=== PATIENT | female | born 1950 | race Caucasian/White ===

== ENCOUNTER → 2022-01-11 14:04 | Outpatient (CLI) | payer MEDICARE, SELFPAY ==
[2022-01-11 15:08] LABS: Add Manual Diff / Slide Review NO; Basophils Absolute Auto 0 /uL (0-100); Basophils Percent Auto 0.4 % (0-2); Eosinophils Absolute Auto 200 /uL (0-450); Eosinophils Percent Auto 2.1 % (2-4); Hematocrit 43.2 % (36-46); Hemoglobin 14.9 g/dL (12.0-16.0); Lymphocytes Absolute Auto 3300 /uL (1100-4500); Lymphocytes Percent Auto 38.3 % (25-40); Mean Corpuscular HGB Conc 34.5 % (30-36); Mean Corpuscular Volume 98.7 fL (80-100); Monocytes Absolute Auto 600 /uL (0-900); Monocytes Percent Auto 7.4 % (3-14); Neutrophils Absolute Auto 4400 /uL (1500-7000); Neutrophils Percent Auto 51.8 % (50-75); Platelet Count 164 X10^3/uL (150-400); Red Blood Cell Count 4.37 X10^6/uL (4.0-5.2); White Blood Cell Count 8.6 X10^3/uL (4.5-11.0)
[2022-01-11 16:40] LABS: BUN Creatinine Ratio 25.5 (6-22); Blood Urea Nitrogen 28 mg/dL (7-17); Calcium 9.2 mg/dL (8.4-10.2); Carbon Dioxide 29 mmol/L (22-32); Chloride 100 mmol/L (98-107); Estimated Glomerular Filt Rate 48.8 mL/min (>60); Glucose 101 mg/dL (80-110); HEMOLYSIS < 15 (0-50); Potassium 3.8 mmol/L (3.4-5.1); Sodium 138 mmol/L (137-145)
== END ==
PROVIDERS: PCP Nurse Practitioner; Referring Provider Orthopaedic Surgery Orthopaedic Surgery of the Spine; Visit Provider Orthopaedic Surgery Orthopaedic Surgery of the Spine
DX: Z01.818 Encounter for other preprocedural examination (principal); Z01.812 Encounter for preprocedural laboratory examination
CPT/HCPCS: 36415; 80048; 85025; 93005; 93010

== ENCOUNTER → 2022-01-29 11:14 | Outpatient (CLI) | payer MEDICARE, SELFPAY ==
[2022-01-29 13:23] LABS: COVID19 -Nasal RAPID Negative (Negative)
== END ==
PROVIDERS: PCP Nurse Practitioner; Visit Provider Family Medicine Sleep Medicine
DX: Z20.822 Contact with and (suspected) exposure to COVID-19 (principal)
CPT/HCPCS: 87635; C9803

== ENCOUNTER → 2022-02-15 13:11 | Outpatient (CLI) | payer MEDICARE, SELFPAY ==
[2022-02-15 16:29] LABS: COVID19 -Nasal RAPID Negative (Negative)
== END ==
PROVIDERS: PCP Nurse Practitioner; Visit Provider Family Medicine Sleep Medicine
DX: Z20.822 Contact with and (suspected) exposure to COVID-19 (principal)
CPT/HCPCS: 87635; C9803

== ENCOUNTER 2022-02-17 06:10 | Inpatient (IN) | payer MEDICARE, SELFPAY ==
[2022-02-08 10:27] VITALS: BMI 28.9
[2022-02-17] VITALS (17 sets, daily range): BP systolic 106–166; BP diastolic 50–79; PULSE 61–88; RESP 10–19; TEMP 35.8–36.6; O2SAT 91–100; BMI 28.9; BMI 31.4
--- NOTE | 2022-02-17 07:43 | PM.PREOP ---
Pre-operative Note COVID-19 COVID-19 status: Negative Result date/Date tested (Pos, Neg/Pending): 02/16/22 Criteria for continued procedure: Expected advancement of disease process, Possibility delay results in more complex future surgery or treatment, Increased loss of function, Continuing or worsening of significant or severe pain, Deterioration of the patient's condition or overall health and Delay expected to result in less-positive ultimate med/surg outcome Interval Note History & Physical reviewed/Exam performed by Physician: Yes Changes to H&P: No
[2022-02-17] MEDS: LACTATED RINGERS 1,000 ML 42 ML IV ×2 (07:56→09:25)
[2022-02-17] MEDS: CEFAZOLIN 2 GM/20 ML SYRINGE IV ×3 (08:28→23:19)
--- NOTE | 2022-02-17 08:53 | SUR.OPER ---
Supine, head on gel donut. Arms padded with gel pads, tucked at sides, towel roll under shoulders. Safety belt at thigh. Legs uncrossed.
[2022-02-17] MEDS: BUPIVACAINE 0.25% (PF) 30 ML, EPINEPHrine 0.15 MG INJ (09:02)
--- NOTE | 2022-02-17 11:07 | DI.RAD.S_ITS ---
PROCEDURE: XR CERVICAL SPINE 2V OR 3V INDICATIONS: C4-5-6-7 ACDF TECHNIQUE: Multiple intraoperative fluoroscopic view(s) of the cervical spine were acquired. COMPARISON: None. FINDINGS: Bones: Fluoroscopic intraoperative views demonstrate anterior fusion and discectomy within the lower cervical spine. IMPRESSION: Intraoperative fluoroscopic views of anterior fusion and discectomy of the lower cervical spine. Dictated by: Iva Peralta M.D. on 02/17/2022 at 11:26 Approved by: Iva Peralta M.D. on 02/17/2022 at 11:26
--- NOTE | 2022-02-17 11:09 | P.OP_ITS ---
Operative Date/Time/Diagnoses Date of procedure: 02/17/22 Time of procedure: 08:15 Pre-op diagnosis: 1. C4-5, C5-6, C6-7 spinal stenosis 2. C4-5, C5-6, C6-7 spondylosis with radiculopathy Post-op diagnosis: same Procedure & Clinicians Procedure: 1. C4-5 C5-6 C6-7 anterior cervical diskectomy and fusion 2. C4-5 C5-6 C6-7 anterior interbody cage placement 3. C4-5 C5-6 C6-7 anterior instrumentation with plate and screw placement in C4-C5-C6 and C7 vertebrae 4. Utilization of microsurgical technique and operating microscope Same procedure as scheduled: Yes Indications: Patient has been having chronic neck pain and worsening cervical radiculopathy. Patient failed multiple conservative management with worsening pain weakness and numbness in her upper extremity. Patient has been having difficulty performing activity of daily living. After discussing risks benefits of treatment options, patient elected proceed with surgery. Surgeon: Serjio Pena Supervisor Special Education: Susy Blas Click Yes if Unassisted: No Anesthesia Type: General Operative Notes Closure Type: primary Specimen(s): none sent Prosthetic devices, grafts, tissues, transplants, or devices: Globus Extend Plate, Titanium cages Applied: catheter Estimated Blood Loss (mL): 5 Blood products transfused: none Procedure in detail: Patient was seen in the preoperative area. Risks and benefits of the surgery was discussed with the patient. Operative consent was obtained and placed in the chart. Patient was then taken to the operative room. Prophylactic antibiotic was given less than 0.5 hr prior to skin incision. General anesthesia was admini stered. Patient was placed into a supine position on her radiolucent table. Bilateral shoulders were taped down to allow proper C-arm imaging. Anterior cervical area was prepped and draped in a sterile fashion. Time-out was performed at this time. Using lateral C-arm imaging, the level between C4 and C7 was identified and marked on patient's neck. A oblique incision from midline towards medial border of sternocleidomastoid muscle was made. The platysma muscle was incised in line with skin incision. Metzenbaum scissor was used to develop the plane between the medial border of sternocleidomastoid d and the strap muscles medially. The carotid sheath and its contents were identified and protected behind the hand- held retractor during the entire case. The plane between the carotid sheath and strap muscles was developed with Metzenbaum scissors. Dissection was made down to the level of the anterior cervical fascia. Longus colli muscle was incised on the anterior aspect of vertebral bodies bilaterally from C4-C7. Spinal needle was placed into the C4-5 disc space and confirmed with lateral C-arm imaging. Using microsurgical technique and operative microscope, anterior cervical diske ctomy was performed at C4-5 C5-6 and C6-7 level. This was done by removing the disc material, removing the anterior and posterior osteophytes posterior longitudinal ligaments along with performing bilateral foraminotomies at all 3 levels. Patient was found to have severe central and foraminal stenosis at all 3 levels. Patient's stenosis was fully decompressed after decompression was completed. After the diskectomy was completed, 3 anterior interbody cages were obtained. The cages were packed with globus via cell bone grafting material. One cage each along with the bone grafting material was then packed into the interbody spaces from C4-C7 with one cage into each interbody level. Patient had large anterior osteophytes that required extensive exposure and removal at all 3 levels. All anterior osteophytes were successfully removed as well as posterior osteophytes. After the cages were placed, the anterior cervical plate was stabilized to the C4-C7 vertebrae using 2 screws at each each level. Total 8 screws were placed. After confirming placement of the hardware with AP and lateral C-arm imaging, the screws were locked into the plate using the locking mechanism and torque limiting screwdriver. After the hardware was placed and confirmed with AP and lateral C-arm imaging, the wound was irrigated with sterile normal saline. The platysma muscle and the subcutaneous tissue was closed with 2-0 Vicryl. The skin was closed with 4- 0Monocryl and Steri-Strips. Patient tolerated the procedure well. Patient was transferred recovery room in stable condition. There were no complications. Complications: none Post-operative Condition: stable Disposition: PACU Plan for aftercare: Admit to inpatient hospital
[2022-02-17] MEDS: fentaNYL 100 MCG/2 ML INJ IV (11:35)
[2022-02-17] MEDS: LORazepam 2 MG/ML INJ 0.25 MG IV (11:51)
--- NOTE | 2022-02-17 12:04 | SUR.PHASEI ---
1150 medicated for anxiety. Stated that she needed to cry and acknowledged that she was crying prior to surgery. States that she has good, safe help at home and isn't sure why she feels the need to cry. 1205 Currently sleeping without any non-verbal cues of pain or concerns. Was asking if the surgery went well, assured her that it did.
--- NOTE | 2022-02-17 12:10 | SUR.PHASEI ---
Dozing, VSS, HOB elevated for position of comfort.
--- NOTE | 2022-02-17 12:14 | SUR.PHASEI ---
Report given to LESLEY Berg (for LESLEY Meek). No questions
--- NOTE | 2022-02-17 12:22 | SUR.PHASEI ---
Patient smiling, reports that her numbness is lessening and that she is happy with the progress compared to pre-op. No long tearful, denies pain/nausea
[2022-02-17] MEDS: SODIUM CHLORIDE 0.9% 1,000 ML 100 ML IV (14:22)
--- NOTE | 2022-02-17 15:10 | PT.IIE ---
Current Diagnoses Other spondylosis with myelopathy, cervical region (02/17/22) Spinal stenosis, cervical region (02/17/22) Surgery Performed Operation Date: 02/17/22 07:45 Actual Procedures p C4-5, C5-6, C6-7 ACDF w. anterior instrumentation - Serjio Pena MD Medical History (Last Reviewed 02/17/22 @ 07:56 by Bi Pearson RN) Arthritis Bilateral cataracts Deviated nasal septum Essential tremor HLD (hyperlipidemia) HTN (hypertension) Hypothyroid TONY (obstructive sleep apnea) Physical Therapy Inpatient Evaluation/Re-Eval M1 PT/OT-IP Prior Functional Status Start: 02/17/22 15:40 Freq: NEEDED Status: Active Protocol: Document 02/17/22 15:10 AB (Rec: 02/17/22 15:49 AB [id number]) Medical Review Prior Functional Status Medical History Reviewed Yes Communication able to make needs known Mobility and Gait pt stated that she is independent with all mobilities and ambulation without AD Social History Household Members spouse Living Arrangements House Number of Floors (Floors) Two Floors Number of Stairs To Enter/Railing? 1 step to enter from the garage 13 steps R rail ascending to bedroom level Home Environment Standard Height Toilet,Walk in Shower Home Equipment Front Wheel Walker,Four Wheel Walker,Straight Cane,Hand Held Shower M2 PT-IP Current Condition Start: 02/17/22 15:40 Freq: NEEDED Status: Active Protocol: Document 02/17/22 15:10 AB (Rec: 02/17/22 15:49 AB [id number]) Physical Therapy Current Condition Current Condition Evaluation Date 02/17/22 Treatment Diagnosis C4-7 ACDF; difficulty in walking Onset Date 02/17/22 M3 PT-IP Subjective Start: 02/17/22 15:40 Freq: NEEDED Status: Active Protocol: Document 02/17/22 15:10 AB (Rec: 02/17/22 15:49 AB [id number]) Subjective Physical Therapy Visit Type Type Initial Evaluation Visit Start Time 15:10 Visit Stop Time 15:40 Total Visit Minutes 30 Number of LAYER UP Visits 0 Physical Therapy Visit Comments Patient Comments agreeable to do PT Therapy Pain Assessment Pain When Pain Assessed At Rest Pain Present Pain Present Pain Reported Location Neck Intensity 1 Scale Used increases to 6/10 with mobility Pain Management Techniques Apply Cold,Distraction, Modification of Treatment,Re- positioning,Timing of Activity with Medications M4 PT-IP Mobility and Gait Start: 02/17/22 15:40 Freq: NEEDED Status: Active Protocol: Document 02/17/22 15:10 AB (Rec: 02/17/22 15:49 AB [id number]) PT-Bed Mobility Assessment Rolling Type of Rolling Log Rolling Level of Assist Contact Guard Assistance Supine to Sit Supine to Sit Contact Guard Assistance Sit to Supine Sit to Supine Contact Guard Assistance PT-Transfer Assessment Sit to and From Stand Sit to and from Stand Minimal Assistance Equipment Transfer Assistive Device None,Gait Belt Orthotic/Prosthetic Devices or Brace: Yes Comments Mobility Comments spouse in room with pt. BP 121 /68 educated pt regarding cervical precautions and log roll bed mobility. pt completed log roll bed mobility CGA and cues for techniques. able to sit on EOB SBA. completed sit to stand min A and cues. unsteady initial standing. c/ o feeling oozy. ambulated in room without AD min A and cues . presents with unsteady gait with increase R genu valgus and ankle inversion. slight R knee buckling towards end of ambulation and increase unsteadiness. pt sat on EOB. educated spouse on cervical collar management. log roll sit to supine CGA and cues. positioned pt on the bed. call light and table placed within reach. Gait Assessment Gait Gait Assistance Required: Minimum Assistance Distance (Feet) 25 Able to Maintain Weight Bearing Status Yes During Gait Assistive Devices Assistive Device None,Gait Belt Orthotic/Prosthetic Devices or Brace: Yes Gait Deviations General Gait Pattern Ataxic Factors Limiting Gait Function Factors Limiting Gait Function Decreased Strength,Difficulty Following Directions,Limited Range of Motion,Pain,Poor Balance,Poor Safety Awareness PT-Balance Assessment Sitting Balance and Reactions Static Sitting Balance Ability Good Dynamic Sitting Balance Ability Good Standing Balance and Reactions Static Standing Balance Ability Fair Dynamic Standing Balance Ability Fair Device Used without AD M5 PT-IP Objective Assessments Start: 02/17/22 15:40 Freq: NEEDED Status: Active Protocol: Document 02/17/22 15:10 AB (Rec: 02/17/22 15:49 AB [email or web address]) Orientation Orientation/Cognition Level of Alertness Alert Orientation Name,Place,Situation Language Function Ability No Deficits Noted Safety Awareness Decreased Safety Awareness Memory Description No Deficits Noted Gross Range of Motion Lower Extremity ROM Assessment Within Functional Limits Strength Lower Extremity Strength Assessment Within Functional Limits Muscle Tone Muscle Tone WNL Yes M6 PT-IP Treatment Start: 02/17/22 15:40 Freq: NEEDED Status: Active Protocol: Document 02/17/22 15:10 AB (Rec: 02/17/22 15:49 AB [email or web address]) Physical Therapy Treatment Education Education Provided Precautions,Post-Op Packet, Safety M7 PT-IP Assessment and Plan Start: 02/17/22 15:40 Freq: NEEDED Status: Active Protocol: Document 02/17/22 15:10 AB (Rec: 02/17/22 15:49 AB [email or web address]) PT Summary Assessment and Plan Potential Rehabilitation Potential Fair Status of Condition at Evaluation Evolving Summary Impairments Pain,ROM,Strength,Balance, Coordination,Sensation,Tone, Cognition,Bed Mobility, Transfers,Gait,Activity Tolerance Assessment Summary pt s/p ACDF and just had surgery this morning. pt will likely progress during hospital stay. pt will have her spouse to assist her at home. caregiver training will be conducted when appropriate as well as stair climbing training. Goals Bed Mobility Goal Independent Transfer Goal Independent,Front Wheeled Walker Gait Goal Independent,Front Wheel Walker Gait Distance 200 Other Goals transfers and ambulation without AD 250 ft SBA up/down 1 step without AD/FWW SBA up/down 13 steps R rail ascending SBA Days to Meet Goals 5 Frequency of Treatment Frequency Of Treatment Twice a Day Treatment Plan Physical Therapy Treatment Plan Bed Mobility Training,Transfer Training,Gait Training, Therapeutic Exercise,Balance Retraining,Post Op Education, Discharge Planning,Hot or Cold Pack,Neuromuscular Re-ed, Coordination Retraining,Manual Therapy Precautions Cervical Spine Precautions Soft Collar for Comfort,No Heavy Lifting,Log Roll Recommendations To Nursing Amount of Assist Needed 1 Person Assist Discharge Recommendations PT Discharge Recommendations Home with Assistance, Outpatient PT Transportation Needs at Discharge Private Vehicle
[2022-02-17] MEDS: HYDROMORPHONE 0.5 MG INJ 0.2 MG IV ×4 (15:53→23:19)
[2022-02-17] MEDS: SENNOSIDES 8.6 MG TABLET 17.2 MG PO (20:31)
[2022-02-17] MEDS: PROPRANOLOL ER 80 MG CAP.SA.24H 240 MG PO (20:31)
[2022-02-17] MEDS: ATORVASTATIN 20 MG TABLET PO (20:31)
[2022-02-17] MEDS: DOCUSATE 100 MG CAPSULE PO (20:31)
[2022-02-17] MEDS: MELOXICAM 7.5 MG TABLET 15 MG PO (20:31)
[2022-02-18] MEDS: HYDROMORPHONE 0.5 MG INJ 0.2 MG IV ×3 (03:02→08:59)
[2022-02-18] MEDS: SODIUM CHLORIDE 0.9% FLUSH 10 ML IV (06:40)
--- NOTE | 2022-02-18 07:43 | P.DS_ITS ---
History of Present Illness History of Present Illness Date Patient Seen: 02/18/22 Time Patient Seen: 07:44 Chief complaint: INPT Narrative: Operative Date/Time/Diagnoses Date of procedure: 02/17/22 Time of procedure: 08:15 Pre-op diagnosis: 1. C4-5, C5-6, C6-7 spinal stenosis 2. C4-5, C5-6, C6-7 spondylosis with radiculopathy Post-op diagnosis: same Procedure & Clinicians Procedure: 1.? C4-5 C5-6 C6-7 anterior cervical diskectomy and fusion 2.? C4-5 C5-6 C6-7 anterior interbody cage placement 3.? C4-5 C5-6 C6-7 anterior instrumentation with plate and screw placement in C4-C5-C6 and C7 vertebrae 4.? Utilization of microsurgical technique and operating microscope Same procedure as scheduled: Yes Indications: Patient has been having chronic neck pain and worsening cervical radiculopathy. Patient failed multiple conservative management with worsening pain weakness and numbness in her upper extremity.? Patient has been having difficulty performing activity of daily living.? After discussing risks benefits of treatment options, patient elected proceed with surgery. Surgeon: Serjio Pena Account Director: Susy Blas Click Yes if Unassisted: No Anesthesia Type: General Operative Notes Closure Type: primary Specimen(s): none sent Prosthetic devices, grafts, tissues, transplants, or devices: Globus Extend Plate, Titanium cages Applied: catheter Estimated Blood Loss (mL): 5 Blood products transfused: none Discharge Providers Provider Date of admission: 02/17/22 06:10 Discharge Date: 02/18/22 Primary care physician: DAHLIA Perales Consults: 02/17/22 07:56 Consult to Respiratory Therapy Evaluate & Treat Comment: Physician Instructions: Evaluate and treat 02/17/22 12:33 Consult to Occupational Therapy Evaluate & Treat Comment: Physician Instructions: Evaluate and treat Consult to Physical Therapy Evaluate & Treat Comment: Physician Instructions: Evaluate and Treat Discharge provider: Susy Blas PA-C Summary Hospital Course Discharge Diagnosis: 1) s/p cervical fusion 2) Almanzar's palsy Hospital Course: Ms Chen's hospital course was complicated by left facial droop present after surgery. 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 She was treated with acyclovir and prednisone in the past, and would like to avoid prednisone d/t aggressive behavior when taking this medicaiton. On POD# 1, she complained of facial asymmetry but denied any visual changes or sensate changes to the face. She was ambulating, eating and voiding without difficulty or assistance, and her pain was well-controlled with oral medication. She was evaluated by PT during her stay. She wanted to go home with the help of her . Exam Vital Signs (past 8 hours): Oxygen Delivery Method Room Air Oxygen Flow Rate 0 Narrative Exam Narrative: 5/5 drafter electronic strength, 5/5 strength in biceps, triceps, deltoids. Sensation to light touch intact throughout BLE. Left anterior neck dressing CDI. HENMT Other: Mild left facial droop present. Sensation to light touch intact throughout left face. Pt able to smile, puff cheeks, but there is mild asymmetry noted. Eyes Other: EOM grossly intact, pupils equal, round, and responsive to light. Left upper eyelid is more flaccid than right, and eye is directed slightly medial. [facility] Medical History Arthritis Bilateral cataracts Deviated nasal septum Essential tremor HLD (hyperlipidemia) HTN (hypertension) Hypothyroid TONY (obstructive sleep apnea) Surgical History (Updated 05// @ 07:41 by Susy Blas PA-C) History of bilateral carpal tunnel release (1991) History of hysterectomy History of orthopedic surgery (2005) History of uvulopalatopharyngoplasty (1994) Hx of tonsillectomy Social History household members: spouse Smoking Status: Current every day smoker alcohol intake: current Discharge Assessment & Plan Assessment and Plan Assessment: 1) s/p cervical fusion 2) Almanzar's palsy Plan of Treatment: 1) Discharge home, soft cervical collar for comfort, oxycodone and vistaril for pain. 2) Valacyclovir x 7 days and Medrol Ramo for presumptive Almanzar's palsy. Discharge Plan Discharge Plan Patient Disposition: Home Discharge orders & Medications Prescriptions: New hydroxyzine pamoate 25 mg Capsule 25 mg PO Q4HR PRN (Reason: muscle spasm) Qty: 120 0RF oxycodone 5 mg tablet 5 mg PO Q6H PRN (Reason: pain (scale score 7-10)) Qty: 42 0RF valacyclovir 1 gram tablet 1,000 mg PO Q8H Qty: 21 0RF methylprednisolone [Medrol (Ramo)] 4 mg tablets,dose pack 4 mg PO DAILY Qty: 21 0RF Continued potassium chloride 10 mEq Capsule, Extended Release 10 meq PO DAILY 0RF chlorthalidone 25 mg Tablet 25 mg PO DAILY 0RF levothyroxine 50 mcg Tablet 50 mcg PO DAILY 0RF simvastatin 20 mg Tablet 20 mg PO QPM 0RF propranolol 120 mg Capsule,Extended Release 24 Hr 240 mg PO BID 0RF magnesium glycinate 100 mg Tablet 400 mg PO DAILY 0RF Discontinued meloxicam 15 mg Tablet 15 mg PO BEDTIME 0RF Follow up/Referrals: Mallory Gordon ARNP [Primary Care Provider] - Serjio Pena MD [Physician] - As previously scheduled (Follow up w/ Dina Webber PA-C, @ 3:20 pm at [facility] office in [place]) Diet/Activity/Treatments Diet: Diet as Tolerated Diet comment: Difficulty swallowing after surgery is normal. Soft, moist foods. Activity: Wear collar as needed for comfort when out of bed. May also be comfortable when sleeping. Cold/Heat Therapy: Heating pad to back of neck as needed for comfort. Skin/Wound/Dressing Care Report to your healthcare provider any signs of infection, such as:: chills, fever, night sweats, unusual drainage and unusual redness Dressing: May shower. Leave dressing in place until follow up in office. If it becomes wet inside, may remove sticky clear plastic and gauze. Leave steri- strips in place. No soaking incision or applying any creams, lotions, or ointments to it. Visit Report/Discharge Packet Instructions: DI for Prescription Opioid Use, DI for Anterior Cervical Discectomy and Fusion Stand Alone Forms: Surgery Discharge Discharge Data Primary Care Provider: Mallory Gordon Quality VTE Deep Vein Thrombosis/Pulmonary Embolism Present on Admission: No
[2022-02-18] MEDS: LEVOTHYROXINE 50 MCG TABLET PO (08:59)
[2022-02-18] MEDS: PROPRANOLOL ER 80 MG CAP.SA.24H 240 MG PO (08:59)
[2022-02-18] MEDS: MAGNESIUM HYDROXIDE 30 ML UDC PO (08:59)
[2022-02-18] MEDS: DOCUSATE 100 MG CAPSULE PO (09:00)
[2022-02-18] MEDS: CHLORTHALIDONE 25 MG TABLET PO (09:00)
[2022-02-18] MEDS: POTASSIUM CHLORIDE 10 MEQ TAB PO (09:00)
--- NOTE | 2022-02-18 09:13 | OT.IP.EVAL ---
Current Diagnoses Other spondylosis with myelopathy, cervical region (02/17/22) Spinal stenosis, cervical region (02/17/22) Arthrodesis status (02/17/22) Surgery Performed Operation Date: 02/17/22 07:45 Actual Procedures p C4-5, C5-6, C6-7 ACDF w. anterior instrumentation - Serjio Pena MD Past Medical History (Last Reviewed 02/17/22 @ 07:56 by Bi Pearson, RN) Arthritis Bilateral cataracts Deviated nasal septum Essential tremor History of bilateral carpal tunnel release (1991) History of hysterectomy History of orthopedic surgery (2005) History of uvulopalatopharyngoplasty (1994) HLD (hyperlipidemia) HTN (hypertension) Hx of tonsillectomy Hypothyroid TONY (obstructive sleep apnea) Surgical History (Last Reviewed 02/17/22 @ 06:41 by Charisma Tolbert RN) History of bilateral carpal tunnel release (1991) History of hysterectomy History of orthopedic surgery (2005) History of uvulopalatopharyngoplasty (1994) Hx of tonsillectomy Occupational Therapy Inpatient Evaluation/Re-Eval M1 PT/OT-IP Prior Functional Status Start: 02/17/22 15:40 Freq: NEEDED Status: Discharge Protocol: Document 02/17/22 15:10 AB (Rec: 02/17/22 15:49 AB [id number]) Medical Review Prior Functional Status Medical History Reviewed Yes Communication able to make needs known Mobility and Gait pt stated that she is independent with all mobilities and ambulation without AD Social History Household Members spouse Living Arrangements House Number of Floors (Floors) Two Floors Number of Stairs To Enter/Railing? 1 step to enter from the garage 13 steps R rail ascending to bedroom level Home Environment Standard Height Toilet,Walk in Shower Home Equipment Front Wheel Walker,Four Wheel Walker,Straight Cane,Hand Held Shower M1 PT/OT-IP Prior Functional Status Start: 02/18/22 09:17 Freq: NEEDED Status: Discharge Protocol: Document 02/18/22 09:00 [facility] (Rec: 02/18/22 13:40 [facility] [id number]) Medical Review Prior Functional Status Medical History Reviewed Yes Communication able to make needs known Mobility and Gait pt stated that she is independent with all mobilities and ambulation without AD Activities of Daily Living and IADL's Pt states able to do all her needs on her own but has trouble to do her bra fastener . Social History Household Members spouse Living Arrangements House Number of Floors (Floors) Two Floors Number of Stairs To Enter/Railing? 1 step to enter from the garage 13 steps R rail ascending to bedroom level Home Environment Standard Height Toilet,Walk in Shower Home Equipment Front Wheel Walker,Four Wheel Walker,Straight Cane,Hand Held Shower M2 OT-IP Current Condition Start: 02/18/22 09:17 Freq: Status: Discharge Protocol: Document 02/18/22 09:00 [facility] (Rec: 02/18/22 13:40 [facility] [id number]) Occupational Therapy Current Condition Current Condition Evaluation Date 02/18/22 Treatment Diagnosis S/p C4-C7 ACDF Post Operative Precautions Cervical Spine Precautions Soft Collar for Comfort,No Heavy Lifting,Log Roll M3 OT- IP Subjective and Pain Start: 02/18/22 09:17 Freq: Status: Discharge Protocol: Document 02/18/22 09:00 [facility] (Rec: 02/18/22 13:40 [facility] [id number]) OT- Subjective Occupational Therapy Visit Type Type Initial Evaluation Visit Start Time 09:00 Visit Stop Time 09:13 Occupational Therapy Visit Comments Patient Comments Pt agreed to do OT eval. Patient/Caregiver Goals TO go home. OT Pain Assessment Pain When Pain Assessed At Rest Pain Present Pain Present Denied Pain M4 OT- IP ADL's Start: 02/18/22 09:17 Freq: Status: Discharge Protocol: Document 02/18/22 09:00 [facility] (Rec: 02/18/22 13:40 [facility] [id number]) OT [id number] Comments OT Self-Feeding Comments able to go over eating needs after ACDF with pt OT ADL-Grooming General Evaluation Grooming Ability Independent OT ADL-Oral Care Comments Oral Care Comments Not performed. OT ADL-Dressing General Eval Upper Body Dressing Ability Standby Assistance OT ADL-Toileting Comments OT Toileting Comments Pt states used the toilet earlier. OT ADL-Bathing Comments OT Bathing Comments Suggested use of shower chair for safety. M5 OT- IP IADL's Start: 02/18/22 09:17 Freq: Status: Discharge Protocol: Document 02/18/22 09:00 [facility] (Rec: 02/18/22 13:40 [facility] [id number]) OT-Instrumental Activities of Daily Living Home Safety Awareness Home Safety Comments Pt insistent that she will be fine and has her to assist with her needs. M6 OT- IP Functional Cognition Start: 02/18/22 09:17 Freq: Status: Discharge Protocol: Document 02/18/22 09:00 [facility] (Rec: 02/18/22 13:40 [facility] [id number]) Cognitive Factors Limiting Selfcare Function Cognitive Ability Level of Alertness Alert Patient Orientation Name,Place,Situation Attention Span Ability Capable of Focused Attention, Capable of Sustained Attention Ability to Follow Commands Able to Follow Multi-Step Commands Safety Awareness Underestimates Need for Assistance Cognitive Comments Cognitive Assessment Comments Pt mainly needing cues to slow down and be mindful for her head movements. OT- Vision and Hearing OT- Hearing Assessment OT- Hearing Assessment WFL OT- Vision Assessment Visual Acuity Glasses All The Time M7 OT- IP Mobility and Balance Start: 02/18/22 09:17 Freq: Status: Discharge Protocol: Document 02/18/22 09:00 [facility] (Rec: 02/18/22 13:40 [facility] [id number]) OT-Transfer Assessment Sit to and From Stand Sit to and from Stand Independent Transfers Transfer Ability Independent Technique Transfer Destination Bed Devices Transfer Assistive Devices None OT- Balance Assessment Sitting Balance and Reactions Static Sitting Balance Ability Normal Dynamic Sitting Balance Ability Good Standing Balance and Reactions Static Standing Balance Ability Good Dynamic Standing Balance Ability Fair M8 OT- IP Objective Assessments Start: 02/18/22 09:17 Freq: Status: Discharge Protocol: Document 02/18/22 09:00 [facility] (Rec: 02/18/22 13:40 [facility] [id number]) OT-Muscle Tone Assessment Muscle Tone WNL Yes M9 OT- IP Assessment and Plan Start: 02/18/22 09:17 Freq: Status: Discharge Protocol: Document 02/18/22 09:00 [facility] (Rec: 02/18/22 13:40 [facility] [id number]) OT Summary Assessment and Plan Potential Rehabilitation Potential Excellent Analytic Complexity at Evaluation Low Summary OT Impairments Balance,Bathing Progress Towards Goals Progressing Toward Goals Assessment Summary Pt doing well after cervical surgery and main barrier are pt needing to slow down and think thing through. Pt to go home with her supportive . Goals Shower Transfer Goal Independent Days to Meet Goals 1 Frequency of Treatment Frequency Of Treatment Once a Day Treatment Plan OT Treatment Plan ADL Training,Functional Mobility,Patient/Family Education,Discharge Planning Other Treatment Recommendations and Next shower if still here Treatment Focus Discharge Recommendations OT Discharge Recommendations Home with Assistance Home Equipment Needs Shower chair? Transportation Needs at Discharge Private Vehicle
--- NOTE | 2022-02-18 09:20 | PT.IPTN ---
Current Diagnoses Other spondylosis with myelopathy, cervical region (02/17/22) Spinal stenosis, cervical region (02/17/22) Arthrodesis status (02/17/22) Surgery Performed Operation Date: 02/17/22 07:45 Actual Procedures p C4-5, C5-6, C6-7 ACDF w. anterior instrumentation - Serjio Pena MD Physical Therapy Treatment Note M2 PT-IP Current Condition Start: 02/17/22 15:40 Freq: NEEDED Status: Discharge Protocol: Document 02/17/22 15:10 AB (Rec: 02/17/22 15:49 AB [id number]) Physical Therapy Current Condition Current Condition Evaluation Date 02/17/22 Treatment Diagnosis C4-7 ACDF; difficulty in walking Onset Date 02/17/22 M3 PT-IP Subjective Start: 02/17/22 15:40 Freq: NEEDED Status: Discharge Protocol: Document 02/18/22 09:20 AB (Rec: 02/18/22 13:19 AB [id number]) Subjective Physical Therapy Visit Type Type Treatment Note Visit Start Time 09:20 Visit Stop Time 09:40 Total Visit Minutes 20 Number of TRUCK HOP Visits 0 Physical Therapy Visit Comments Patient Comments wants to go home Therapy Pain Assessment Pain When Pain Assessed At Rest Pain Present Pain Present Pain Reported Location Neck Intensity 2 Scale Used Numeric (0 - 10) M4 PT-IP Mobility and Gait Start: 02/17/22 15:40 Freq: NEEDED Status: Discharge Protocol: Document 02/18/22 09:20 AB (Rec: 02/18/22 13:19 AB [id number]) PT-Bed Mobility Assessment Rolling Type of Rolling Log Rolling Level of Assist Standby Assistance Supine to Sit Supine to Sit Standby Assistance Sit to Supine Sit to Supine Standby Assistance PT-Transfer Assessment Sit to and From Stand Sit to and from Stand Standby Assistance Equipment Transfer Assistive Device Gait Belt,Straight Cane Orthotic/Prosthetic Devices or Brace: Yes Transfers Transfer Destination Chair Transfer Technique ambulated Transfer Ability Level of Assist Standby Assistance,1 Person Assistance,Use of Upper Extremities Comments Mobility Comments pt requiring SBA with bed mobility, transfers and ambulated towards the stairs using SPC SBA. pt can be impulsive and educated on safety. pt completed up/down stair using R rail ascending SBA. pt ambulated back to her room SBA. pt sat on the chair. pt and spouse without any othe concerns. Gait Assessment Gait Gait Assistance Required: Standby Assistance Distance (Feet) 200 Able to Maintain Weight Bearing Status Yes During Gait Assistive Devices Assistive Device Gait Belt,Straight Cane Orthotic/Prosthetic Devices or Brace: No Gait Deviations General Gait Pattern Decreased Stride Length, Decreased Feet Clearance Factors Limiting Gait Function Factors Limiting Gait Function Decreased Activity Tolerance, Decreased Strength,Difficulty Following Directions,Limited Range of Motion,Pain,Poor Balance,Poor Safety Awareness Stair Climbing Assessment Evaluation Level of Assist On Stairs Standby Assistance Devices Stair Climbing Assistive Devices Right Railing Technique/Endurance Stair Climbing Direction Ascend and Descend Stair Climbing Technique Step Over Step Number of Steps Climbed 3 Stair Climbing Set # Repetitions (reps) 2 PT-Balance Assessment Sitting Balance and Reactions Static Sitting Balance Ability Normal Dynamic Sitting Balance Ability Good Standing Balance and Reactions Static Standing Balance Ability Fair Dynamic Standing Balance Ability Fair Device Used SPC M5 PT-IP Objective Assessments Start: 02/17/22 15:40 Freq: NEEDED Status: Discharge Protocol: Document 02/17/22 15:10 AB (Rec: 02/17/22 15:49 AB [id number]) Orientation Orientation/Cognition Level of Alertness Alert Orientation Name,Place,Situation Language Function Ability No Deficits Noted Safety Awareness Decreased Safety Awareness Memory Description No Deficits Noted Gross Range of Motion Lower Extremity ROM Assessment Within Functional Limits Strength Lower Extremity Strength Assessment Within Functional Limits Muscle Tone Muscle Tone WNL Yes M6 PT-IP Treatment Start: 02/17/22 15:40 Freq: NEEDED Status: Discharge Protocol: Document 02/18/22 09:20 AB (Rec: 02/18/22 13:19 AB [id number]) Physical Therapy Treatment Education Education Provided Precautions,Safety M7 PT-IP Assessment and Plan Start: 02/17/22 15:40 Freq: NEEDED Status: Discharge Protocol: Document 02/18/22 09:20 AB (Rec: 02/18/22 13:19 AB [id number]) PT Summary Assessment and Plan Potential Rehabilitation Potential Good Summary Impairments Pain,ROM,Strength,Balance, Cognition,Bed Mobility, Transfers,Gait,Activity Tolerance Progress Towards Goals Progressing Toward Goals Assessment Summary pt requiring SBA with mobility but requiring use of SPC at this time for safety. pt will have her spouse to assist her at home. spouse was educated on how to assist pt with cervical collar management. pt plans to go home today. Goals Bed Mobility Goal Independent Transfer Goal Independent,Front Wheeled Walker Gait Goal Independent,Front Wheel Walker Gait Distance 200 Other Goals transfers and ambulation without AD 250 ft SBA up/down 1 step without AD/FWW SBA up/down 13 steps R rail ascending SBA Days to Meet Goals 5 Frequency of Treatment Frequency Of Treatment Twice a Day Treatment Plan Physical Therapy Treatment Plan Bed Mobility Training,Transfer Training,Gait Training, Therapeutic Exercise,Balance Retraining,Post Op Education, Discharge Planning,Hot or Cold Pack,Neuromuscular Re-ed, Coordination Retraining,Manual Therapy Precautions Cervical Spine Precautions Soft Collar for Comfort,No Heavy Lifting,Log Roll Recommendations To Nursing Amount of Assist Needed 1 Person Assist Discharge Recommendations PT Discharge Recommendations Home with Assistance, Outpatient PT Transportation Needs at Discharge Private Vehicle
[2022-02-18 09:45] VITALS: BP 144/80; PULSE 74; RESP 18; TEMP 36.6; O2SAT 100
--- NOTE | 2022-02-18 12:25 | CM.DANOTE ---
DCP: Case received, EMR reviewed. Had seen patient walking in the hallway with her cane and spouse. Wrote the name of this DC Bag Grader on the board, but was unable to see patient before leaving. Completed DCP assessment based upon information currently available. Patient is a 71 year old female who admitted yesterday morning to the care of the orthopedist team. PCP: Dr. Gordon. Payer: confirmed: [employer] Medicare. Patient came to the hospital for a surgical procedure. Patient had C4-5, C5-6, C6-7 anterior cervical diskectomy and fusion. Patient has history of spinal stenosis, spondylosis with radiculopathy. Attempted to meet with patient, had seen her working with P.T, walking in hallway with spouse, neck brace in place, and cane. She had already left when this DC Bag Grader attempted to meet with her. Looking at P.T. notes, patient is independent with her mobilities at baseline. Patient and spouse were taught cervical precautions, as well as cervical collar management. Patient also educated on stair climbing. P: Patient was discharged home with spouse, and will follow up with ortho appt. Tonja Watson RN/Hotel Desk Clerk Discharge Planning/Care Management CM Discharge Assessment Start: 02/18/22 12:23 Freq: Status: Discharge Protocol: Document 02/18/22 12:23 (Rec: 02/18/22 12:25 [id number]) Discharge Planning Assessment Assigned Hammer Repairer Tonja Watson RN/Hotel Desk Clerk Advance Directives? Yes: POLST Advance Directives on File Yes History Provided By Patient,Medical Record Prior Living Arrangements House Household Members spouse Type of transporation used prior to Drives own vehicle admit Independent with ADL's Yes Is patient alert and oriented? Yes DME Already Rented / Owned Cane Patient/Family Preference OP PT Therapy Barriers to Discharge No Discharge Plan Home Transportation Arrangement Spouse Referrals Initiated None needed Whiteboard Updated in Patient Room with Yes name and ext. # of Hammer Repairer Review Status In Process Next Review Type Continued Stay Review Pre-Anesthesia Assessment Start: 01/25/22 13:26 Freq: Status: Complete Protocol: Document 02/08/22 10:27 CAB (Rec: 01/25/22 14:31 CAB [id number]) Pre-Anesthesia Assessment PAC Comment VERY HARD IV START Patient Information Reviewed Via Phone Assessment Assessment Completed With Patient Diagnostic Results BMP/CMP,CBC,EKG Comment Labs/ECG @ [facility] 01/11/22, COVID screen @ 02/15/22 Primary Care Provider Mallory Gordon Seen Specialist in Last 12 Months Yes Specialist Seen Orthopedist Primary Language Egyptian Equipment Manager Required No Height 5 ft 5 in Weight 174 lb Body Mass Index (BMI) 28.9 Hearing Ability Normal Visual Assist Glasses Dentition Type Teeth, Natural Present,Teeth, Missing Barriers to Learning None Hx Anesthesia Reactions No Hx Family Anesthesia Reaction No Hx Malignant Hyperthermia No Hx Blood Transfusions No Anesthesia Review Requested No alcohol intake current alcohol intake frequency 0-2 drinks per day Smoking Status Current every day smoker Tobacco type cigarettes Smoking cigarettes per day 7 Substance Use Type marijuana Comment Pt advised not to smoke marijuana 24 hours prior Pain Present Pain Reported Musculoskeletal Symptoms Back Pain,Limited Range of Motion,Neck Pain,Numbness, Radiating Pain into Limb History of Falling (Recent or History of Yes ) Patient is completely paralyzed or No completely immobile Mental Status Oriented to own ability Is patient on oxygen? No Does patient have MCCOLLUM/SOB No Hx Sleep Apnea Yes: Resolved s/p UPPP surgery CPAP/BIPAP use not prescribed Currently Taking a Beta Karlie Yes: Propranolol for tremor Can You Climb a Flight of Stairs Without Yes SOB Hx Chest Pain No Hx SOB No Hx Syncope or Dizziness No Anti-Coagulant Therapy No Has a Assistant Produce Manager No Cardiac Testing No Hx Pacemaker/ICD No Pacemaker Rep Required? No Cardiac Clearance Received Not Applicable Diet Type At Home Low Fat dysphagia No Genitourinary Symptoms Dribbling Bladder Pattern Incontinent, Stress,Urgency Urinary Catheter Present No Hx Urinary Self Catheterization No Diabetes No Patient No Lactating No Hx Drug Resistant Organism No Presence of External or Internal Medical No Devices Have you had any close contact with No someone diagnosed with COVID-19? Received a COVID vaccine? Yes Received all doses? Yes Marital Status Lives With spouse Prior Living Arrangements House Number of Floors (Floors) Two Floors Support System Spouse Does the Patient Have Assistance After Yes Surgery Patient Discharge Plan Description Return Home Comment Pt not advised on length of stay per surgeon Feels Safe in Current Environment Yes Been Physically Hurt or Threatened By a No Person in Current Environment Do you have thoughts of harming yourself None or others? Are you currently considering suicide? No Do you have a plan to hurt yourself or No Plan others? Do You Have Any Spiritual Beliefs That No May Affect Your HC Choices? Do You Have Any Cultural Practices That No May Affect Your HC Choices? Who Can We Speak to About Patient's Care Family, friends Identifying Code for Release of Patient Declines to issue Information Health Care Proxy/Next of Kin Rickey () Health Care Proxy Emergency Contact Name Rickey () Emergency Contact Advance Directives? Yes: POLST Requested Patient Bring Advanced Yes Directives DOS Power of Executive Meeting Manager No PAC Instructions Medications to take/avoid, Nasal antibiotic,No ETOH/ petroleum product on skin DOS, NPO,Post-op transportation,Pre -surgical wash,Sensory aids, Sturdy shoes/comfortable clothes,Do not bring valuables and remove jewelry
== END 2022-02-18 10:30 | disposition home or self-care (01) | DRG 472 ==
PROVIDERS: Admitting Provider Orthopaedic Surgery Orthopaedic Surgery of the Spine; PCP Nurse Practitioner; Referring Provider Orthopaedic Surgery Orthopaedic Surgery of the Spine; Visit Provider Orthopaedic Surgery Orthopaedic Surgery of the Spine
PROC: 0RG20A0 Fusion of 2 or more Cervical Vertebral Joints with Interbody Fusion Device, Anterior Approach, Anterior Column, Open Approach (ICD-10-PCS; principal; 2022-02-17 07:45)
DX: M48.02 Spinal stenosis, cervical region (principal); M47.12 Other spondylosis with myelopathy, cervical region; M25.78 Osteophyte, vertebrae; G51.0 Bell's palsy; E03.9 Hypothyroidism, unspecified; I10 Essential (primary) hypertension; E78.5 Hyperlipidemia, unspecified; F17.210 Nicotine dependence, cigarettes, uncomplicated; Z20.822 Contact with and (suspected) exposure to COVID-19
CPT/HCPCS: 72040; 76000; 82962; 87635; 97116; 97162; 97165; 99406; C9803; C1713; J0171; J0690; J1170; J2060; J2250; J2704; J3010